=== PATIENT | male | born 1965 | race Caucasian/White ===

== ENCOUNTER 2016-05-27 08:56 | Emergency (ER) | payer OTHER ==
[2016-05-27 10:20] LABS: HEMOGLOBIN 13.7 gm/dl (14.0-17.5); RED BLOOD COUNT 4.57 M/UL (4.20-5.50); WHITE BLOOD COUNT 5.3 K/UL (4.5-11.0)
[2016-05-27 11:03] LABS: BUN/CREATININE RATIO 17 (0-10)
== END 2016-05-27 11:53 | disposition home or self-care (01) ==
LOC: ER1 08:56
PROVIDERS: Emergency Medicine
DX: J32.9 Chronic sinusitis, unspecified (principal)
CPT/HCPCS: 70450; 71020; 80053; 81001; 85025; 86403; 87040; 87081; 87880; 99285